=== PATIENT | female | born 1975 | race American Indian/Alaskan Native ===

== ENCOUNTER 2018-07-10 09:25 | Emergency (ER) | payer MEDICAID ==
[2018-07-10 09:36] VITALS: BP 166/101
[2018-07-10] MEDS ORDERED: TETRACAINE 0.5% OU ONE (10:34)
[2018-07-10] MEDS ORDERED: FUL-GLO OP ONE (10:34)
[2018-07-10] MEDS ORDERED: ULTRAM PO ONE (11:18)
--- NOTE | 2018-07-10 11:23 | Emergency Department Report ---
ED Eye Problem HPI - General Chief complaint: Eye Problems Stated complaint: LFT EYE BLANTON/PAIN Time Seen by Provider: 07/10/18 10:15 Source: patient Mode of arrival: Ambulatory Limitations: No Limitations - History of Present Illness Initial comments: Patient presents to the emergency department with left eye burning that started this morning. She also complains of sensitivity to light and tearing. Patient nausea trauma or head injury. Patient has no complaint MD chief complaint: eye pain -: Sudden Onset Description: sudden Location: left eye Place: home If Injury: none Eye Symptoms: burning, redness, pain, photophobia Severity: moderate Severity scale (0 -10): 5 If Pain, Quality: sharp Consistency: constant Associated Symptoms: none Treatments Prior to Arrival: none - Related Data Previous Rx's Medication Instructions Recorded Last Taken Type HYDROcodone/APAP 5-325 [[place] 1 each PO Q4HR PRN #16 tablet 04/02/15 Unknown Rx 5/325] Sulfamethoxazole/Trimethoprim 1 each PO Q12H #20 tablet 04/02/15 Unknown Rx [Bactrim DS TAB] Erythromycin [Erythromycin Ophth 1 applicatio OS 6XD 7 Days #3.5 g 04/29/18 Unknown Rx Oint] Ibuprofen [Motrin] 800 mg PO Q8HR PRN #24 tablet 07/10/18 Unknown Rx Neomycin/Bacit/P-Myx/Hydrocort 3.5 gm OP Q4HR #1 oint...g. 07/10/18 Unknown Rx [Jesse-Polycin Hc Eye Ointment] Allergies Allergy/AdvReac Type Severity Reaction Status Date / Time No Known Allergies Allergy Verified 04/02/15 22:42 ED Review of Systems ROS: Stated complaint: LFT EYE BLANTON/PAIN Other details as noted in HPI Comment: All other systems reviewed and negative Constitutional: denies: chills, fever Eyes: eye pain. denies: eye discharge, vision change ENT: denies: ear pain, throat pain Respiratory: denies: cough, shortness of breath, wheezing Cardiovascular: denies: chest pain, palpitations Endocrine: no symptoms reported Gastrointestinal: denies: abdominal pain, nausea, diarrhea Genitourinary: denies: urgency, dysuria, discharge Musculoskeletal: denies: back pain, joint swelling, arthralgia Skin: denies: rash, lesions Neurological: denies: headache, weakness, paresthesias Psychiatric: denies: anxiety, depression Hematological/Lymphatic: denies: easy bleeding, easy bruising ED Past Medical Hx - Past Medical History Previous Medical History?: No - Surgical History Past Surgical History?: Yes Additional Surgical History: Tubal ligation. - Social History Smoking Status: Never Smoker Substance Use Type: Alcohol - Medications Home Medications: Home Medications Medication Instructions Recorded Confirmed Last Taken Type HYDROcodone/APAP 5-325 [[place] 1 each PO Q4HR PRN #16 tablet 04/02/15 Unknown Rx 5/325] Sulfamethoxazole/Trimethoprim 1 each PO Q12H #20 tablet 04/02/15 Unknown Rx [Bactrim DS TAB] Erythromycin [Erythromycin Ophth 1 applicatio OS 6XD 7 Days #3.5 g 04/29/18 Unknown Rx Oint] Ibuprofen [Motrin] 800 mg PO Q8HR PRN #24 tablet 07/10/18 Unknown Rx Neomycin/Bacit/P-Myx/Hydrocort 3.5 gm OP Q4HR #1 oint...g. 07/10/18 Unknown Rx [Jesse-Polycin Hc Eye Ointment] ED Physical Exam - General Limitations: No Limitations General appearance: alert, in no apparent distress - Head Head exam: Present: atraumatic, normocephalic - Eye Eye exam: Present: PERRL, EOMI, other (corneal abrasion not crossing the midline; no hyphema) - ENT ENT exam: Present: mucous membranes moist - Neck Neck exam: Present: normal inspection - Respiratory Respiratory exam: Present: normal lung sounds bilaterally. Absent: respiratory distress - Cardiovascular Cardiovascular Exam: Present: regular rate, normal rhythm. Absent: systolic murmur, diastolic murmur, rubs, gallop - GI/Abdominal GI/Abdominal exam: Present: soft, normal bowel sounds - Extremities Exam Extremities exam: Present: normal inspection - Back Exam Back exam: Present: normal inspection - Neurological Exam Neurological exam: Present: alert, oriented X3 - Psychiatric Psychiatric exam: Present: normal affect, normal mood - Skin Skin exam: Present: warm, dry, intact, normal color. Absent: rash ED Course Vital Signs 07/10/18 09:33 Temperature 98 F Pulse Rate 100 H Respiratory 18 Rate Blood Pressure 166/101 O2 Sat by Pulse 98 Oximetry ED Medical Decision Making - Medical Decision Making Discussed plan of care with patient Critical care attestation.: If time is entered above; I have spent that time in minutes in the direct care of this critically ill patient, excluding procedure time. ED Disposition Clinical Impression: Corneal abrasion Disposition: TO HOME OR SELFCARE Is pt being admited?: No Does the pt Need Aspirin: No Condition: Stable Instructions: Corneal Abrasion (ED) Additional Instructions: return if worse Prescriptions: Ibuprofen [Motrin] 800 mg PO Q8HR PRN #24 tablet PRN Reason: pain Neomycin/Bacit/P-Myx/Hydrocort [Jesse-Polycin Hc Eye Ointment] 3.5 gm OP Q4HR #1 oint...g. Referrals: PRIMARY CARE, [Primary Care Provider] - 3-5 Days [facility] [Provider Group] - 3-5 Days Time of Disposition: 11:22
== END 2018-07-10 12:02 | disposition home or self-care (01) ==
LOC: ED 09:25
DX: S05.02XA Injury of conjunctiva and corneal abrasion without foreign body, left eye, initial encounter (principal); Z98.51 Tubal ligation status; X58.XXXA Exposure to other specified factors, initial encounter; Y93.89 Activity, other specified; Y92.89 Other specified places as the place of occurrence of the external cause; Y99.8 Other external cause status
CPT/HCPCS: 99282

== ENCOUNTER 2019-04-06 16:15 | Emergency (ER) | payer MEDICAID ==
[2019-04-06 16:23] VITALS: BP 152/92
--- NOTE | 2019-04-06 17:13 | Event Note ---
ED Screening Note Date of service: 04/06/19 Time: 17:08 ED Screening Note: reports boil to left armpit x 2 weeks. Pain is 6/10 and tried Motrin and warm compresses without any releif. Note round area to ttp axilla. Some This initial assessment/diagnostic orders/clinical plan/treatment(s) is/are subject to change based on patients health status, clinical progression and re- assessment by fellow clinical providers in the ED. Further treatment and workup at subsequent clinical providers discretion. Patient/guardian urged not to elope from the ED as their condition may be serious if not clinically assessed and managed. Initial orders include:
[2019-04-06] MEDS ORDERED: LIDOCAINE-MPF (1%) 10 MG/1 ML VIAL 5 ML INFILTRATI ONE (19:22)
[2019-04-06] MEDS ORDERED: KETOROLAC 30 MG/1 ML INJ IM ONE (19:22)
[2019-04-06] MEDS ORDERED: oxyCODONE /ACETAMINOPHEN 5-325MG TAB PO ONE (19:22)
[2019-04-06] MEDS ORDERED: SULFAMETHOXAZOLE/TRIMETHOPRIM 800/160MG DS TAB PO ONE (19:22)
[2019-04-06] MEDS ORDERED: ONDANSETRON 4 MG ODT TAB PO ONE (19:23)
--- NOTE | 2019-04-06 19:54 | Emergency Department Report ---
ED General Adult HPI - General Chief complaint: Skin/Abscess/Foreign Body Stated complaint: LFT UNDERARM BOIL/PAIN Time Seen by Provider: 04/06/19 17:08 Source: patient Mode of arrival: Ambulatory Limitations: No Limitations - History of Present Illness Complaint: Painful swollen erythematous rash on left axilla -: Sudden, days(s) (6) Location: upper extremity (left axilla) Radiation: non-radiation Severity scale (0 -10): 7 Quality: aching, sharp, constant Consistency: constant Improves with: none Worsens with: none Associated Symptoms: denies other symptoms, rash (erythematous swollen painful rash). denies: confusion, chest pain, cough, diaphoresis, fever/chills, headaches, malaise, nausea/vomiting, seizure, shortness of breath, syncope, weakness Treatments Prior to Arrival: none - Related Data Previous Rx's Medication Instructions Recorded Last Taken Type HYDROcodone/APAP 5-325 [[place] 1 each PO Q4HR PRN #16 tablet 04/02/15 Unknown Rx 5/325] Erythromycin [Erythromycin Ophth 1 applicatio OS 6XD 7 Days #3.5 g 04/29/18 Unknown Rx Oint] Neomycin/Bacit/P-Myx/Hydrocort 3.5 gm OP Q4HR #1 oint...g. 07/10/18 Unknown Rx [Jesse-Polycin Hc Eye Ointment] Acetaminophen/Codeine [Tylenol 1 tab PO Q6H PRN #12 tab 04/06/19 Unknown Rx /Codeine # 3 tab] Clindamycin [Clindamycin CAP] 300 mg PO Q8HR #60 capsule 04/06/19 Unknown Rx Ibuprofen [Motrin 800 MG tab] 800 mg PO Q8HR PRN #24 tablet 04/06/19 Unknown Rx Ondansetron [Zofran Odt] 4 mg PO Q6HR PRN #15 tab.rapdis 04/06/19 Unknown Rx Sulfamethoxazole/Trimethoprim 1 each PO Q12H #20 tablet 04/06/19 Unknown Rx [Bactrim DS TAB] Allergies Allergy/AdvReac Type Severity Reaction Status Date / Time No Known Allergies Allergy Verified 04/02/15 22:42 ED Review of Systems ROS: Stated complaint: LFT UNDERARM BOIL/PAIN Other details as noted in HPI Constitutional: denies: chills, fever Eyes: denies: eye pain, eye discharge, vision change ENT: denies: ear pain, throat pain Respiratory: denies: cough, shortness of breath, wheezing Cardiovascular: denies: chest pain, palpitations Endocrine: no symptoms reported Gastrointestinal: denies: abdominal pain, nausea, diarrhea Genitourinary: denies: urgency, dysuria, discharge Musculoskeletal: denies: back pain, joint swelling, arthralgia Skin: rash, change in color, other (Erythematous swollen maculopapular painful rash on the left axilla). denies: lesions Neurological: denies: headache, weakness, paresthesias Psychiatric: denies: anxiety, depression Hematological/Lymphatic: denies: easy bleeding, easy bruising ED Past Medical Hx - Past Medical History Previous Medical History?: No - Surgical History Past Surgical History?: Yes Additional Surgical History: Tubal ligation. - Social History Smoking Status: Never Smoker Substance Use Type: None - Medications Home Medications: Home Medications Medication Instructions Recorded Confirmed Last Taken Type HYDROcodone/APAP 5-325 [[place] 1 each PO Q4HR PRN #16 tablet 04/02/15 Unknown Rx 5/325] Erythromycin [Erythromycin Ophth 1 applicatio OS 6XD 7 Days #3.5 g 04/29/18 Unknown Rx Oint] Neomycin/Bacit/P-Myx/Hydrocort 3.5 gm OP Q4HR #1 oint...g. 07/10/18 Unknown Rx [Jesse-Polycin Hc Eye Ointment] Acetaminophen/Codeine [Tylenol 1 tab PO Q6H PRN #12 tab 04/06/19 Unknown Rx /Codeine # 3 tab] Clindamycin [Clindamycin CAP] 300 mg PO Q8HR #60 capsule 04/06/19 Unknown Rx Ibuprofen [Motrin 800 MG tab] 800 mg PO Q8HR PRN #24 tablet 04/06/19 Unknown Rx Ondansetron [Zofran Odt] 4 mg PO Q6HR PRN #15 tab.rapdis 04/06/19 Unknown Rx Sulfamethoxazole/Trimethoprim 1 each PO Q12H #20 tablet 04/06/19 Unknown Rx [Bactrim DS TAB] ED Physical Exam - General Limitations: No Limitations General appearance: alert, in no apparent distress - Head Head exam: Present: atraumatic, normocephalic, normal inspection - Eye Eye exam: Present: normal appearance, PERRL, EOMI Pupils: Present: normal accommodation - ENT ENT exam: Present: normal exam, normal orophraynx, mucous membranes moist, TM's normal bilaterally, normal external ear exam - Neck Neck exam: Present: normal inspection, full ROM, lymphadenopathy (left axilla) - Respiratory Respiratory exam: Present: normal lung sounds bilaterally. Absent: respiratory distress, wheezes, rales, rhonchi, chest wall tenderness, accessory muscle use, decreased breath sounds - Cardiovascular Cardiovascular Exam: Present: normal rhythm, tachycardia, normal heart sounds. Absent: systolic murmur, diastolic murmur, rubs, gallop - GI/Abdominal GI/Abdominal exam: Present: soft, normal bowel sounds. Absent: tenderness, guarding, rebound, hyperactive bowel sounds, organomegaly, bruit - Extremities Exam Extremities exam: Present: normal inspection, full ROM, tenderness (palpable severely tender left axilla due to erythematous maculopapular fluctuant rash), normal capillary refill - Back Exam Back exam: Present: normal inspection, full ROM. Absent: CVA tenderness (L), muscle spasm, paraspinal tenderness, vertebral tenderness - Neurological Exam Neurological exam: Present: alert, oriented X3, CN II-XII intact, normal gait, reflexes normal - Psychiatric Psychiatric exam: Present: normal affect, normal mood - Skin Skin exam: Present: warm, dry, intact, normal color, rash (erythematous maculopapular fluctuant severely tender rash on left axilla), erythema ED Course Vital Signs 04/06/19 04/06/19 04/06/19 16:21 19:39 19:41 Temperature 98.2 F Pulse Rate 107 H Respiratory 18 16 16 Rate Blood Pressure 152/92 [Right] O2 Sat by Pulse 99 Oximetry - Reevaluation(s) Reevaluation #1: 04/06/19 19:54 This is a 43-year-old female who presented to the ED with complaint of acute onset persistent severe painful swollen erythematous maculopapular fluctuant rash on left axilla for 6 days. In the ED, patient is alert and oriented 3 and is not in distress, but is tachycardic in triage and afebrile. Patient was treated for pain and also given initial oral antibiotic Bactrim DS by mouth 1, the left axilla swollen maculopapular rash was incised and drained per protocol and patient's wound debrided thoroughly, and dressed appropriately. The patient tolerated the procedure well. Patient was discharged home on antibiotics and pain medications and advised to follow-up with her primary care physician in 7- 10 days for reevaluation. Patient was also advised to return to the ED in 2 days for wound recheck and packing removal. Patient was otherwise advised to return to the ED immediately if symptoms get worse. - I & D Left Arm Type of Procedure: Simple (left axilla) Site: 4 cm x 4 cm Blade Size: 11 I & D Procedure: betadine prep, sterile drapes applied, sterile dressing applied Progress: Patient tolerated the procedure well. The wound was cleaned thoroughly and dressed appropriately. Patient discharged home on pain medications and antibiotics advised to return to the ED 2 days for wound recheck. Patient was advised to follow-up with her primary care physician in 7-10 days for reevaluation. ED Medical Decision Making - Medical Decision Making This is a 43-year-old female who presented to the ED with complaint of acute onset persistent severe painful swollen erythematous maculopapular fluctuant rash on left axilla for 6 days. In the ED, patient is alert and oriented 3 and is not in distress, but is tachycardic in triage and afebrile. Patient was treated for pain and also given initial oral antibiotic Bactrim DS by mouth 1, the left axilla swollen maculopapular rash was incised and drained per protocol and patient's wound debrided thoroughly, and dressed appropriately. The patient tolerated the procedure well. Patient was discharged home on antibiotics and pain medications and advised to follow-up with her primary care physician in 7- 10 days for reevaluation. Patient was also advised to return to the ED in 2 days for wound recheck and packing removal. Patient was otherwise advised to return to the ED immediately if symptoms get worse. - Differential Diagnosis Cellulitis of left axilla; Cutaneos abscess; Folliculitis Critical care attestation.: If time is entered above; I have spent that time in minutes in the direct care of this critically ill patient, excluding procedure time. ED Disposition Clinical Impression: Cellulitis of left axilla Cutaneous abscess of axilla Qualifiers: Laterality: left Qualified Code(s): L02.412 - Cutaneous abscess of left axilla Disposition: TO HOME OR SELFCARE Is pt being admited?: No Does the pt Need Aspirin: No Condition: Stable Instructions: Cellulitis (ED), Abscess (ED) Additional Instructions: Take medications with food, drink plenty of fluids and follow-up with your primary care physician in 7-10 days for reevaluation. Return to the ED in 2 days for wound recheck and packing removal. Otherwise return to the ED if symptoms get worse. Prescriptions: Sulfamethoxazole/Trimethoprim [Bactrim DS TAB] 1 each PO Q12H #20 tablet Clindamycin [Clindamycin CAP] 300 mg PO Q8HR #60 capsule Ibuprofen [Motrin 800 MG tab] 800 mg PO Q8HR PRN #24 tablet PRN Reason: pain Acetaminophen/Codeine [Tylenol /Codeine # 3 tab] 1 tab PO Q6H PRN #12 tab PRN Reason: Pain , Severe (7-10) Ondansetron [Zofran Odt] 4 mg PO Q6HR PRN #15 tab.rapdis PRN Reason: Nausea Referrals: [facility] [Outside] - 3-5 Days Time of Disposition: 19:59 Print Language: [place]ONG K[place]ER
== END 2019-04-06 21:00 | disposition home or self-care (01) ==
LOC: ED 16:15
DX: L02.412 Cutaneous abscess of left axilla (principal); Z98.51 Tubal ligation status; Z79.899 Other long term (current) drug therapy
CPT/HCPCS: 10060; 96372; 99282; J1885; Q0162

== ENCOUNTER 2019-04-09 22:13 | Emergency (ER) | payer MEDICAID ==
[2019-04-09 23:02] VITALS: BP 160/93
--- NOTE | 2019-04-10 01:43 | Emergency Department Report ---
ED Recheck HPI - General Chief Complaint: Skin/Abscess/Foreign Body Stated Complaint: F/U BOIL Time Seen by Provider: 04/10/19 00:59 Source: patient Mode of arrival: Ambulatory Limitations: No Limitations - History of Present Illness MD Complaint: wound re-check -: days(s) (3) Initial Visit For: abscess Returns Today for: wound recheck Symptoms Since Prior Visit: no new symptoms Context: planned re-check Associated Symptoms: none. denies: fever, chills Treatments Prior to Arrival: other (I&D) - Related Data Previous Rx's Medication Instructions Recorded Last Taken Type HYDROcodone/APAP 5-325 [[place] 1 each PO Q4HR PRN #16 tablet 04/02/15 Unknown Rx 5/325] Erythromycin [Erythromycin Ophth 1 applicatio OS 6XD 7 Days #3.5 g 04/29/18 Unknown Rx Oint] Neomycin/Bacit/P-Myx/Hydrocort 3.5 gm OP Q4HR #1 oint...g. 07/10/18 Unknown Rx [Jesse-Polycin Hc Eye Ointment] Acetaminophen/Codeine [Tylenol 1 tab PO Q6H PRN #12 tab 04/06/19 Unknown Rx /Codeine # 3 tab] Clindamycin [Clindamycin CAP] 300 mg PO Q8HR #60 capsule 04/06/19 Unknown Rx Ibuprofen [Motrin 800 MG tab] 800 mg PO Q8HR PRN #24 tablet 04/06/19 Unknown Rx Ondansetron [Zofran Odt] 4 mg PO Q6HR PRN #15 tab.rapdis 04/06/19 Unknown Rx Sulfamethoxazole/Trimethoprim 1 each PO Q12H #20 tablet 04/06/19 Unknown Rx [Bactrim DS TAB] Allergies Allergy/AdvReac Type Severity Reaction Status Date / Time No Known Allergies Allergy Verified 04/02/15 22:42 ED Review of Systems ROS: Stated complaint: F/U BOIL Other details as noted in HPI Comment: All other systems reviewed and negative Constitutional: denies: chills, fever ED Past Medical Hx - Surgical History Additional Surgical History: Tubal ligation. - Social History Smoking Status: Never Smoker Substance Use Type: None - Medications Home Medications: Home Medications Medication Instructions Recorded Confirmed Last Taken Type HYDROcodone/APAP 5-325 [[place] 1 each PO Q4HR PRN #16 tablet 04/02/15 Unknown Rx 5/325] Erythromycin [Erythromycin Ophth 1 applicatio OS 6XD 7 Days #3.5 g 04/29/18 Unknown Rx Oint] Neomycin/Bacit/P-Myx/Hydrocort 3.5 gm OP Q4HR #1 oint...g. 07/10/18 Unknown Rx [Jesse-Polycin Hc Eye Ointment] Acetaminophen/Codeine [Tylenol 1 tab PO Q6H PRN #12 tab 04/06/19 Unknown Rx /Codeine # 3 tab] Clindamycin [Clindamycin CAP] 300 mg PO Q8HR #60 capsule 04/06/19 Unknown Rx Ibuprofen [Motrin 800 MG tab] 800 mg PO Q8HR PRN #24 tablet 04/06/19 Unknown Rx Ondansetron [Zofran Odt] 4 mg PO Q6HR PRN #15 tab.rapdis 04/06/19 Unknown Rx Sulfamethoxazole/Trimethoprim 1 each PO Q12H #20 tablet 04/06/19 Unknown Rx [Bactrim DS TAB] ED Physical Exam - General Limitations: No Limitations General appearance: alert, in no apparent distress - Head Head exam: Present: atraumatic, normocephalic - Eye Eye exam: Present: normal appearance, PERRL, EOMI - ENT ENT exam: Present: mucous membranes moist - Neck Neck exam: Present: normal inspection - Respiratory Respiratory exam: Present: normal lung sounds bilaterally. Absent: respiratory distress - Cardiovascular Cardiovascular Exam: Present: regular rate, normal rhythm - GI/Abdominal GI/Abdominal exam: Absent: distended - Extremities Exam Extremities exam: Present: normal inspection - Neurological Exam Neurological exam: Present: alert, oriented X3 - Psychiatric Psychiatric exam: Present: normal affect, normal mood - Skin Skin exam: Present: other (packing removed from left axilla, no erythema or purulence present) ED Course Vital Signs 04/09/19 23:01 Temperature 99.0 F Pulse Rate 81 Respiratory 16 Rate Blood Pressure 160/93 O2 Sat by Pulse 97 Oximetry ED Recheck MDM - Differential Diagnosis Cutananeous Abscess reche Critical care attestation.: If time is entered above; I have spent that time in minutes in the direct care of this critically ill patient, excluding procedure time. ED Disposition Clinical Impression: Encounter for recheck of abscess following incision and drainage Disposition: TO HOME OR SELFCARE Is pt being admited?: No Condition: Stable Instructions: Abscess Incision and Drainage (ED) Referrals: PRIMARY CARE, [Primary Care Provider] - 3-5 Days [facility] [Provider Group] - 3-5 Days Time of Disposition: 01:43
== END 2019-04-10 01:57 | disposition home or self-care (01) ==
LOC: ED 22:13
DX: Z48.00 Encounter for change or removal of nonsurgical wound dressing (principal); Z53.21 Procedure and treatment not carried out due to patient leaving prior to being seen by health care provider